=== PATIENT | female | born 1990 | race Caucasian/White ===

== ENCOUNTER 2022-09-19 23:41 | Emergency (ER) | payer OTHER ==
[2022-09-19 23:49] VITALS: BP 109/67; PULSE 72; RESP 16; TEMP 98.4; BMI 24.2
[2022-09-19] MEDS ORDERED: SULFAMETHOXAZOLE/TRIMETHOPRIM 800MG/160MG D.S. TABLET PO ONE (23:55)
[2022-09-20] MEDS ORDERED: SULFAMETHOXAZOLE/TRIMETHOPRIM 800MG/160MG D.S. TABLET ONE (00:04)
== END 2022-09-20 00:10 | disposition home or self-care (01) ==
LOC: FER 23:41
DX: H60.12 Cellulitis of left external ear (principal); H93.92 Unspecified disorder of left ear
CPT/HCPCS: 99283-25